=== PATIENT | female | born 1950 | race Caucasian/White ===

== ENCOUNTER 2018-02-14 16:02 | Emergency (ER) | payer MEDICARE, MEDICAID, SELFPAY ==
[2018-02-14] VITALS (23 sets, daily range): BP systolic 137–155; BP diastolic 58–101; PULSE 54–102; RESP 13–25; TEMP 36.2–37; O2SAT 94–98
--- NOTE | 2018-02-14 16:31 | DI.RPTCT_ITS ---
SYMPTOMS/DIAGNOSIS: MENTAL STATUS CHANGES, PREVIOUS STROKE WITH APHASIA AND LT WEAKNESS NONCONTRAST HEAD CT: A large amount of artifact is again noted related to aneurysm clipping. A right temporal craniotomy and a large area of encephalomalacia involving nearly the entire right hemisphere is again noted. There is ex vacuo dilatation of the right lateral ventricle. No acute hemorrhage or acute infarct is seen. There has been no change from previous exams. IMPRESSION: Large area of right sided encephalomalacia, unchanged.
--- NOTE | 2018-02-14 16:33 | DI.RPTCT_ITS ---
SYMPTOM/DIAGNOSIS: MENTAL STATUS CHANGES, QUESTION FEVER, RLQ TENDERNESS CT CHEST, ABDOMEN AND PELVIS: Images were performed from the clavicles through the ischial tuberosities without IV or oral contrast. The exam is somewhat limited by patient motion and patient arm positioning over her abdomen. The heart size is normal. Vascular calcifications are seen. Emphysematous changes are noted. No infiltrate or effusion is seen. No mass or adenopathy is identified. No compression fractures are identified. There is motion at the level of the liver and spleen. No gross abnormalities identified. The gallbladder is not seen, status post cholecystectomy. The pancreas is not well seen due to motion. There is no evidence of hydronephrosis or obstructing stones. Diverticula are noted in the sigmoid colon. There is no evidence of diverticulitis. The patient is status post hysterectomy. There is a cystic area seen in the left side of the pelvis measuring 4.4 x 6.3 x 4.8 cm likely representing a left ovarian cyst. There is mild pelvic floor prolapse. IMPRESSION: 6.3 cm left ovarian cyst. An ultrasound could be performed for further evaluation. No acute abnormality is identified.
--- NOTE | 2018-02-14 16:33 | ED.GENADUL ---
Disposition Clinical Impression: Mental status change resolved Disposition: LEVEL III [facility] Condition: Good Additional Instructions: You underwent laboratory testing including CBC, comprehensive panel, urinalysis: White blood cell count 10, hematocrit 42, platelets 387. Sodium 142, potassium 4.3, chloride 105, bicarb 29, BUN 10, creatinine 0.8. LFTs were negative. Troponin negative. Catheterized urinalysis unremarkable You underwent CT scan of the head, chest, abdomen and pelvis. There is no evidence of acute finding. You do have a possible ovarian cyst on the left. Your workup has been reassuring. vital signs have remained normal without fever. You are stable for discharge back to the [facility]. Medical Decision Making - Lab Data Laboratory Results - last 24 hr 02/14/18 02/14/18 02/14/18 11:58 16:46 16:46 WBC 10.76 RBC 4.97 Hgb 14.2 Hct 42.7 MCV 85.9 MCH 28.6 MCHC 33.3 RDW 13.5 Plt Count 387 MPV 9.7 Immature Gran % 0.3 Neutrophils % 60.6 Lymphocytes % 29.3 Monocytes % 7.8 Eosinophils % 1.4 Basophils % 0.6 Absolute Neutrophils 6.53 Absolute Lymphocytes 3.15 Absolute Monocytes 0.84 H Absolute Eosinophils 0.15 Absolute Basophils 0.06 Sodium 142 Potassium 4.3 Chloride 105 Carbon Dioxide 29.8 Anion Gap 7.2 BUN 10 Creatinine 0.83 Estimated GFR/1.73 m2 >= 60.00 Glucose 95 Calcium 9.1 Magnesium 2.2 Total Bilirubin 0.2 AST 15 ALT 17 Alkaline Phosphatase 84 Troponin I < 0.02 Total Protein 8.0 Albumin 3.2 L Urine Color Straw Urine Clarity Clear Urine pH 6.0 Ur Specific [place] <= 1.005 Urine Protein Negative Urine Ketones Negative Urine Blood Small H Urine Nitrite Negative Urine Bilirubin Negative Urine Urobilinogen 0.2 Ur Leukocyte Esterase Negative Urine RBC 0-2 Urine WBC 0-2 Ur Epithelial Cells Negative Urine Crystals Negative Urine Bacteria Negative Urine Casts Negative Urine Mucus Negative Urine Other Negative Ur Culture Indicated? 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 She presents with question fever at senior living and question mental status changes. She arrives afebrile, she is interactive, she answers simple questions yes or no. Her exam does reveal some right lower quadrant abdominal tenderness. Do not feel history of its peritonitis, but she is difficult to interview given her pre-standing aphasia. IV placed, labs obtained, patient referred for cath urine, CT scan of the head as well as chest abdomen and pelvis. Diagnostics reveal: CBC with white count 10, hematocrit 42, platelets 387. Sodium 142, potassium 4.3, chloride 105, bicarb 29, BUN 10, creatinine 0.8 LFTs unremarkable. Troponin negative. Urinalysis unremarkable . CT scan results are negative for acute findings of the brain, the chest abdomen and pelvis are notable only for pelvic floor laxity and possible ovarian cyst.. Patient has remained. When I went to discuss her findings that were negative with her she began to repeatedly state money God damn money endpoint to numerous illustrations in her spiral notebooks of similar sets of numbers that she keeps reciting. Unclear why she is agitated regarding money. She received a small amount of Ativan History of Present Illness - General Chief complaint: AMS/LOC Stated complaint: CALEX Time Seen by Provider: 02/14/18 16:19 Source: patient, EMS, RN notes reviewed Mode of arrival: EMS Limitations: other (Pre-standing aphasia due to stroke) - History of Present Illness Initial comments: 67-year-old female who lives at the [facility]. She has freestanding aphasia and left-sided weakness from previous CVA. She was noted to be burning up per nursing referral and had question of new mental status changes. There is no note of fall, new focal weakness, patient refused other interventions and was transported to the emergency department. History is limited by patient's pre-standing a aphasia - Related Data Unknown [No Known Home Meds] 02/14/18 Allergies Allergy/AdvReac Type Severity Reaction Status Date / Time aspirin Allergy Unknown Unverified 02/14/18 16:18 Penicillins Allergy Unknown Unverified 02/14/18 16:18 Sulfa (Sulfonamide Allergy Unknown Unverified 02/14/18 16:18 Antibiotics) Review of Systems Limitations: ROS unobtainable due to patients medical condition Past Medical History - Past Medical History See nursing notes. General Exam - General Limitations: language barrier, other (Pre-standing aphasia) General appearance: alert, in no apparent distress - Head Head exam: Present: atraumatic, normocephalic - Eye Eye exam: Present: PERRL, EOMI - Neck Neck exam: Present: normal inspection, full ROM - Respiratory Respiratory exam: Present: normal lung sounds bilaterally. Absent: respiratory distress, chest wall tenderness - Cardiovascular Cardiovascular Exam: Present: regular rate, normal rhythm - GI/Abdominal GI/Abdominal exam: Present: soft, tenderness, other (Right lower quadrant tenderness to palpation.). Absent: distended - Neurological Exam Neurological exam: Present: alert, other (Left upper and lower extremity hemiplegia, expressive aphasia) - Skin Skin exam: Present: warm, dry, intact Course Vital Signs - 24 hr 02/14/18 16:13 Temperature 37 C Pulse 60 Respiratory 16 Rate Blood Pressure 155/68 Pulse Oximetry 95
[2018-02-14 16:56] LABS: Abs Immature Grans 0.03 k/cumm (0.0-0.09); Absolute Basophil Count 0.06 k/cumm (0.0-0.2); Absolute Eosinophil Count 0.15 k/cumm (0.0-0.7); Absolute Lymphocyte Count 3.15 k/cumm (1.2-3.4); Absolute Monocyte Count 0.84 k/cumm (0.11-0.7); Absolute Neutrophil Count 6.53 k/cumm (1.2-6.7); Basophils % 0.6; Eosinophils % 1.4; HCT 42.7 % (36.0-46.0); HGB 14.2 g/dL (12.0-15.5); Immature Grans % 0.3; Lymphocytes % 29.3; Mean Corp. HGB Concentration 33.3 g/dL (32.0-36.0); Mean Corpuscular Hemoglobin 28.6 pg (27.0-33.0); Mean Corpuscular Volume 85.9 fL (80-95); Mean Platelet Volume 9.7 fL (8.0-11.0); Monocytes % 7.8; Neutrophils % 60.6; Platelet Count 387 x1000/uL (130-400); RBC 4.97 m/cumm (4.00-5.20); RBC Distribution Width 13.5 % (11.7-14.6); White Blood Cell Count 10.76 k/cumm (4.4-10.8)
[2018-02-14 17:15] LABS: Bilirubin Negative (Negative); Blood Small (Negative); Clarity Clear; Glucose Negative (Negative); Ketones Negative (Negative); Leukocyte Esterase Negative (Negative); Nitrite Negative (Negative); Specific Gravity <= 1.005 (1.005-1.025); Urobilinogen 0.2 EU/dL (Up TO 0.2)
[2018-02-14 17:18] LABS: ALT 17 U/L (12-78); AST 15 U/L (15-37); Albumin 3.2 g/dL (3.4-5.0); Alkaline Phosphatase 84 U/L (46-116); Anion Gap 7.2 mmol/L (3-11); BUN 10 mg/dL (7-18); Bilirubin, Total 0.2 mg/dL (0.2-1.0); CO2 29.8 mmol/L (21.0-32.0); CREATININE 0.83 mg/dL (0.55-1.02); Calcium 9.1 mg/dL (8.5-10.1); Chloride 105 mmol/L (98-107); Glucose 95 mg/dL (70-100); Magnesium 2.2 mg/dL (1.8-2.4); Potassium 4.3 mmol/L (3.5-5.1); Sodium 142 mmol/L (136-145)
[2018-02-14] MEDS: Normal Saline 1,000 ML 150 ML IV (17:20)
[2018-02-14 17:22] LABS: Troponin I < 0.02 ng/mL (0.00-0.06)
[2018-02-14 17:28] LABS: Bacteria Negative HPF (Negative); Casts Negative LPF (Negative); Crystals Negative HPF (Negative); Epithelial Cells Negative HPF (Negative); Mucus Negative (Negative); Other Cells Negative (Negative); RBC 0-2 (0-2); WBC 0-2 HPF (0-5)
[2018-02-14 17:29] LABS: C & S Indicated? No
[2018-02-14] MEDS: Omnipaque 350 MG/ML 100 ML BTL IJ (17:32)
--- NOTE | 2018-02-14 18:05 | DI.VRAD_ITS ---
EXAM: CT Head Without Intravenous Contrast CLINICAL HISTORY: 67 years old, female; Signs and symptoms; Altered mental status/memory loss; Other: Previous stroke TECHNIQUE: Axial computed tomography images of the head/brain without intravenous contrast. All CT scans at this facility use at least one of these dose optimization techniques: automated exposure control; mA and/or kV adjustment per patient size (includes targeted exams where dose is matched to clinical indication); or iterative reconstruction. Coronal and sagittal reformatted images were created and reviewed. COMPARISON: No relevant prior studies available. FINDINGS: Brain: See below. Ventricles: There is mild, diffuse involutional change with mild associated ventriculomegaly. 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 There is encephalomalacia involving nearly the entire right MCA distribution, consistent with associated infarction. There is significant compensatory dilatation of the right lateral ventricle. No acute fracture. Soft tissues: Unremarkable. Sinuses: Unremarkable as visualized. No acute sinusitis. Mastoid air cells: Unremarkable as visualized. No mastoid effusion. 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 There is encephalomalacia involving nearly the entire right MCA distribution, consistent with associated infarction. There is significant compensatory dilatation of the right lateral ventricle. No acute brain abnormality is seen. Dictated and Authenticated by: Nabor Ramirez MD. Ordering:JAMAICA EVANGELISTA MD
--- NOTE | 2018-02-14 19:19 | DI.VRAD_ITS ---
EXAM: CT Chest Without Intravenous Contrast CLINICAL HISTORY: 67 years old, female; Signs and symptoms; Other: ? Fever rt lower quadrant pain TECHNIQUE: Axial computed tomography images of the chest without intravenous contrast. All CT scans at this facility use at least one of these dose optimization techniques: automated exposure control; mA and/or kV adjustment per patient size (includes targeted exams where dose is matched to clinical indication); or iterative reconstruction. Coronal and sagittal reformatted images were created and reviewed. COMPARISON: No relevant prior studies available. FINDINGS: Artifacts: Respiratory motion slightly limits the exam. Lungs: COPD noted. Pleural space: Unremarkable. No pneumothorax. No significant effusion. Heart: Mild coronary artery calcifications noted. No significant pericardial effusion. Bones/joints: Unremarkable. No acute fracture. No dislocation. Soft tissues: Unremarkable. Vasculature: Moderate atherosclerotic change seen in the vasculature. No thoracic aortic aneurysm. Lymph nodes: Unremarkable. No enlarged lymph nodes. IMPRESSION: COPD. No evidence for acute abnormality. EXAM: CT Abdomen and Pelvis Without Intravenous Contrast EXAM DATE/TIME: 02/14/2018 5:46 PM CLINICAL HISTORY: 67 years old, female; Signs and symptoms; Other: ? Fever rt lower quadrant pain TECHNIQUE: Axial computed tomography images of the abdomen and pelvis without intravenous contrast. All CT scans at this facility use at least one of these dose optimization techniques: automated exposure control; mA and/or kV adjustment per patient size (includes targeted exams where dose is matched to clinical indication); or iterative reconstruction. Coronal and sagittal reformatted images were created and reviewed. COMPARISON: No relevant prior studies available. FINDINGS: Artifacts: Respiratory motion slightly limits the exam. Lung bases: Unremarkable. No mass. No consolidation. ABDOMEN: Liver: Unremarkable. Gallbladder and bile ducts: Gallstones. No ductal dilation. Pancreas: Unremarkable. No ductal dilation. Spleen: Unremarkable. No splenomegaly. Adrenals: Unremarkable. No mass. Kidneys and ureters: Dystrophic right renal cortical calcification noted, presumed scarring. No hydronephrosis. Stomach and bowel: Unremarkable. No obstruction. No mucosal thickening. PELVIS: Appendix: No findings to suggest acute appendicitis. Bladder: Unremarkable. No stones. Reproductive: There is a low density left adnexal lesion 4.4 x 6.3 x 4.8 cm. Status post hysterectomy. There is pelvic floor laxity with mild vaginal prolapse. ABDOMEN and PELVIS: Intraperitoneal space: Unremarkable. No free air. No significant fluid collection. Bones/joints: No acute fracture. No dislocation. Soft tissues: Unremarkable. Vasculature: Moderate atherosclerotic change seen in the vasculature. No abdominal aortic aneurysm. Lymph nodes: Unremarkable. No enlarged lymph nodes. IMPRESSION: 1. Left adnexal lesion, probable ovarian cyst. Followup sonography recommended. 2. Mild degree of vaginal prolapse and pelvic floor laxity. Preliminary interpretation is based on receipt of 380 image(s). A final report will be issued subsequently. We appreciate the opportunity to be involved in this patient's care. Dictated and Authenticated by: Rhiannon Pabon MD. Ordering:JAMAICA EVANGELISTA MD
[2018-02-14] MEDS: LORazepam 2 MG/ML VIAL 0.5 MG IVP (19:58)
== END 2018-02-14 20:19 | disposition designated cancer center or children's hospital (05) ==
LOC: ER 01-12 23:05
PROVIDERS: Emergency Provider Emergency Medicine; PCP Nurse Practitioner Adult Health
DX: R41.82 Altered mental status, unspecified (principal); R10.31 Right lower quadrant pain; I69.320 Aphasia following cerebral infarction
CPT/HCPCS: 36415; 71250; 80053; 96361; 96374; 99284; 70450; 74176; 81003; 81015; 83735; 84484; 85025; J2060; J3490

== ENCOUNTER 2019-03-14 15:22 | Emergency (ER) | payer MEDICARE, MEDICAID, SELFPAY ==
[2019-03-14 15:30] VITALS: BP 197/80; PULSE 92; RESP 16; TEMP 36.5; O2SAT 94
--- NOTE | 2019-03-14 15:46 | DI.CT_ITS ---
SYMPTOM/DIAGNOSIS: WOUND ON SKULL ON RT CRANIAL CT: 03/[address] was performed. Note is made of prior right craniotomy defect with large area of right hemisphere encephalomalacia and aneurysm clips in the right middle fossa/sella turcica region. Examination is compared to previous examination of 02/14/18. No change in appearance since that time. No evidence of acute intracranial hemorrhage, mass effect or midline shift. The orbital and temporal bone structures appear intact.. CONCLUSION: No evidence of acute process.
--- NOTE | 2019-03-14 15:47 | ED.GENADUL_ITS ---
Discharge Plan Disposition Patient Disposition: SNF (LEVEL 1) [facility] Discharge Details Chief Complaint: RashLesion Clinical Impression: Open scalp wound Primary Care Provider: Stephanie Morris ED Provider: Lazaro Franklin Home Meds and New Rx's Prescriptions: No Action No Known Home Meds RF: 0 Discharge Instructions Additional Instructions: Patient will be referred to the wound care clinic. Return to the emergency department immediately if she develops any fevers, weakness, or for any other concerning or worsening symptoms at all. Referrals: Stephanie Morris [Primary Care Provider] - Medical Decision Making This patient is a 68-year-old female who presents to the emergency department with chief complaint of wound on her head. Patient cannot provide much of the history. Patient did have a CT scan of her head which shows no acute changes. This wound is likely chronic in nature and would need to go to the wound care clinic to help get it to heal. There is no evidence of cellulitis around it. Patient will be referred to the wound care clinic. [id number] will be provided return precautions and discharge instructions. She agrees with outpatient treatment plan. HPI This patient is a 68-year-old female who was brought in by her [id number]. The patient lives at the [facility]. The patient has had a history of an aneurysm, brain surgery, and has difficulty with communication due to her history of stroke. She was brought in today because she has a wound on the top of her head on the right side. The wound has a dry crusted lesion in it. It has been present for about 2 months. The family states that it has gotten worse over the past month, slightly increasing in size. There is no surrounding drainage or warmth. Patient has not had any fevers. She has not really complained about it. She has not had any vomiting, diarrhea, fever, or any other recent illness. Patient cannot provide any history. The history comes from the [id number]. General Date/Time Provider Initiated Documentation: 03/14/19 15:46 . Related Data Home Medications Medication Instructions Recorded Confirmed Unknown [No Known Home Meds] 02/14/18 03/14/19 Allergies Allergy/AdvReac Type Severity Reaction Status Date / Time aspirin Allergy Unknown Unverified 03/14/19 15:36 Penicillins Allergy Unknown Unverified 03/14/19 15:36 Sulfa (Sulfonamide Allergy Unknown Unverified 03/14/19 15:36 Antibiotics) General Stated Complaint: RashLesion LARA: 3 Review of Systems Review of Systems Pmprukyh-[id number]-[id number] denies any vomiting, fever or other recent illness. [facility] Social History Smoking/Tobacco Use Status: Former Tobacco Use Drug use: Never Exam Narrative Exam Narrative: Gen: no acute distress, alert. Eyes: EOMs intact. Head: there is a 3 cm in diameter scalp wound on the right parietal area with eschar. no surrounding erythema or warmth. ENT: nose and ears normal. Neck: normal ROM. Lung: no respiratory distress. Neuro: aphasia, cannot move left side of body. Psych: normal affect. Skin: warm, intact. Course Vital Signs Temperature 36.5 C 03/14/19 15:30 Pulse 92 H 03/14/19 15:30 Respiratory Rate 16 03/14/19 15:30 Blood Pressure 197/80 H 03/14/19 15:30 Pulse Oximetry 94 L 03/14/19 15:30 Temperature 36.5 C 03/14/19 15:30 Temperature Source Skin 03/14/19 15:30 Pulse 92 H 03/14/19 15:30 Respiratory Rate 16 03/14/19 15:30 Respiratory Effort Non-Labored 03/14/19 15:30 Blood Pressure 197/80 H 03/14/19 15:30 Blood Pressure Position Supine 03/14/19 15:30 Pulse Oximetry 94 L 03/14/19 15:30 Oxygen Delivery Method Room Air 03/14/19 15:30 Oxygen Flow Rate 0 03/14/19 15:30 Pain Level 9 03/14/19 15:30
--- NOTE | 2019-03-14 16:28 | DI.VRAD_ITS ---
EXAM: CT Head Without Contrast EXAM DATE/TIME: 03/14/2019 3:48 PM CLINICAL HISTORY: 68 years old, female; Condition or disease; Aneurysm, cerebral; Prior surgery; Surgery date: 6+ months; Surgery type: History of aneurysm and skull removal. TECHNIQUE: Imaging protocol: Computed tomography of the head without contrast. COMPARISON: CT HEAD WITHOUT CONTRAST 02/14/2018 5:33 PM FINDINGS: Prior right temporal and parietal craniotomies unchanged. Prior right aneurysm clipping. Extensive encephalomalacia in the right hemisphere unchanged. No new area of acute ischemia. No evidence of acute hemorrhage. IMPRESSION: Marked chronic changes in the right hemisphere as described stable from the prior examination with no definite evidence of acute intracranial process. Dictated and Authenticated by: Mehul Mackay MD. Ordering:DARLNIG Willis MD
[2019-03-14 16:50] VITALS: BP 162/66; PULSE 75; RESP 16; TEMP 36.5; O2SAT 93
== END 2019-03-14 16:45 | disposition skilled nursing facility (03) ==
PROVIDERS: Emergency Provider Emergency Medicine; PCP Nurse Practitioner Adult Health
DX: S01.00XA Unspecified open wound of scalp, initial encounter (principal); X58.XXXA Exposure to other specified factors, initial encounter
CPT/HCPCS: 99284; 70450; 99283

== ENCOUNTER 2019-03-18 12:22 | Outpatient (REF) | payer MEDICARE, MEDICAID, SELFPAY ==
--- NOTE | 2019-03-18 18:00 | SKI_PTH ---
PATIENT: Belinda Wallace LOC: [facility] U#:[id number] AGE/SX: 68/F ROOM: RE03/18/[address]: Jane Sigala MD, DC : 1950 BED: DIS: 03/18/2019 SPEC #: [id number] RECD: 03/19/19 12:46 STATUS: VELVET REQ #: [id number] ALEJANDRO: 03/18/19 18:[address]: Jane Sigala DEPT: Surgical Specimen RECD BY: Salima Ronquillo Tissues: 1 - SKIN BIOPSY(SHAVE/PUNCH) Procedures: GROSS LEVEL 1 Comments: [id number]
== END 2019-03-18 12:42 ==
LOC: LBN 12:22
PROVIDERS: PCP Family Medicine; Visit Provider Family Medicine
DX: D48.5 Neoplasm of uncertain behavior of skin (principal)
CPT/HCPCS: 88300; 87070; 88305; 88311

== ENCOUNTER 2020-03-20 20:50 | Emergency (ER) | payer MEDICARE, MEDICAID, SELFPAY ==
[2020-03-20 20:54] VITALS: BP 162/58; PULSE 61; TEMP 36.5; O2SAT 97
--- NOTE | 2020-03-20 21:10 | W.ED.GENAD ---
Discharge Plan Disposition Patient Disposition: HOME Condition: Stable Discharge Details Clinical Impression: Skull defect, History of cranial surgery Primary Care Provider: Liz Bertrand ED Provider: Felicia Smith Home Meds and New Rx's Prescriptions: Continued acetaminophen 650 mg Tablet 650 mg PO Q6H PRNRF: 0 nystatin 100,000 unit/gram Powder 1 applic TOPICAL BID PRNRF: 0 ondansetron 4 mg Tablet,Disintegrating 4 mg translingual Q8H PRNRF: 0 Discharge Instructions Instructions: Computed Tomography Scan (ED) Additional Instructions: Drink plenty of fluids and get plenty of rest. Follow-up with your primary care doctor in 1 week. Return to the emergency department with any worsening or new concerning symptoms. 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 Pt at neurologic baseline per family and [facility] staff. BP hypertensive, remainder of vitals within normal limits. She has a chronic appearing R sided skull defect which appears well healed w/o evidence of cellulitis, trauma or rash. Case d/w pt's daughter in law Reny - she is agreeable with plan for CT head but I informed her that I do not see any evidence of concerning mass, infection. Discussed that other possibilities can include dehydration making skull appears more prominent or minimal inflammatory reaction. CT head obtained which is negative for acute findings. Results d/w Reny. Will plan for discharge back to the [facility]. Advised to follow up with the primary care doctor for re-evaluation. Usual and customary return precautions given prior to discharge. Medical Records Medical records reviewed: Yes I reviewed the patient's medical records. Imaging Data Radiologic Study: Radiologist's impression: CT Head Without Contrast Exam date and time: 03/20/2020 9:24 PM Age: 69 years old Clinical indication: Prior surgery; Patient HX: Possible lump on R side of head; Additional info: R/O acute intracranial abnormality TECHNIQUE: Imaging protocol: Computed tomography of the head without contrast. COMPARISON: 1. CT HEAD WO 03/14/2019 4:[address] - HEAD WITHOUT CONTRAST 02/14/2018 5:33:08 PM FINDINGS: Brain: Large area of encephalomalacia in the right hemisphere, unchanged. No acute hemorrhage. Right sided aneurysm clip is unchanged. Ventricles: Compensatory right lateral ventricle dilation is unchanged. Bones/joints: Postsurgical changes in the right calvarium. Paranasal sinuses: Visualized sinuses are unremarkable. No fluid levels. Mastoid air cells: Visualized mastoid air cells are well aerated. Soft tissues: Unremarkable. IMPRESSION: 1. No acute intracranial abnormality. 2. No significant change from the prior exam. HPI General Mode of arrival: EMS. Date/Time Provider Initiated Documentation: 03/20/20 21:01. Limitations to Documentation: other (chronic aphasia due to previous cva). Information obtained by: EMS. HPI Narrative: Pt is a 69yo F w/ a h/o cerebral aneurysm resulting in cva 2005 s/p coiling with residual asphasia and LUE/LLE hemiplegia presents from the [facility] at family request for concern of a tumor growing out of her head. Pt has had chronic skull defect due to previous craniotomy and coiling but daughter in law Reny states that she thought that the R side of patient's head appeared swollen and more prominent compared to previous. She states she last saw pt 6 weeks ago and this appears more prominent compared to previous. She states pt is otherwise acting at her neurologic baseline. Denies any recent illness or injury. History unable to be obtained from pt due to her aphasia. Reny states that pt understands what is being said but cannot express herself appropriately. Related Data Home Medications Medication Instructions Recorded Confirmed acetaminophen 650 mg PO Q6H PRN 03/20/20 03/20/20 nystatin 1 applic TOPICAL BID PRN 03/20/20 03/20/20 ondansetron 4 mg TRANSLINGUAL Q8H PRN 03/20/20 03/20/20 Allergies Allergy/AdvReac Type Severity Reaction Status Date / Time aspirin Allergy Unknown Unverified 03/14/19 15:36 Penicillins Allergy Unknown Unverified 03/14/19 15:36 Sulfa (Sulfonamide Allergy Unknown Unverified 03/14/19 15:36 Antibiotics) General Stated Complaint: GenMedical LARA: 3 Review of Systems Unobtainable due to mental status [facility] Medical History (Updated 03/21/20 @ 13:51 by Felicia Smith DO) Cerebral aneurysm CVA (cerebral vascular accident) Skull defect Surgical History (Updated 03/21/20 @ 13:51 by eFlicia Smith DO) History of cranial surgery S/P coil embolization of cerebral aneurysm Social History Smoking/Tobacco Use Status: Former Tobacco Use Drug use: Never Additional Social history: pt lives at the [facility] Exam Const General: cooperative and no acute distress Orientation: alert and awake [facility] Head: other Head images: 1. Multiple bony abnormalities noted to R side of skull consistent with previous bony abnormality from skull surgeries. Face and sinus: normal facial exam Eyes General: appearance normal, both eyes and all related structures Pupils: PERRL EOM: EOM intact bilaterally Neck Neck: normal visual inspection and No submandibular swelling Lymphatic: no lymphadenopathy noted Chest Chest: normal inspection of the chest and no tenderness Resp Effort & Inspection: normal respiratory effort and able to speak in complete sentences Auscultation: clear to auscultation bilaterally Cardio Rate: regular rate Rhythm: regular rhythm GI Inspection: normal to inspection Palpation: soft, not firm, not rigid and nontender Auscultation: normal bowel sounds Back/Spine/Pelvis Thoracic/Lumbar Spine: thoracic and lumbar spine normal to inspection Pelvis: no pain with anterior-posterior compression Skin General skin exam: no rashes or lesions noted Neuro General: patient alert and patient awake Speech: expressive aphasia Other: LUE and LLE paralysis. Able to move and lift RUE/RLE. Extrem General: capillary refill normal, no calf tenderness bilaterally and no edema Other: L hand contracted and held close to body. Psych Appearance: grossly normal Affect: normal affect Course Vital Signs Vital signs: Vital Signs Temperature 97.7 F 03/20/20 20:54 Pulse 61 03/20/20 20:54 Blood Pressure 162/58 H 03/20/20 20:54 Pulse Oximetry 97 03/20/20 20:54 Temperature 97.7 F 03/20/20 20:54 Temperature Source Skin 03/20/20 20:54 Pulse 61 03/20/20 20:54 Blood Pressure 162/58 H 03/20/20 20:54 Blood Pressure Position Sitting 03/20/20 20:54 Pulse Oximetry 97 03/20/20 20:54 Oxygen Delivery Method Room Air 03/20/20 20:54 Oxygen Flow Rate 0 03/20/20 20:54
--- NOTE | 2020-03-20 21:15 | DI.CT_ITS ---
EXAM: CT HEAD WO CLINICAL HISTORY: possible lump on R side of head TECHNIQUE: COMPARISON: CT CT HEAD WO from 03/14/2019 FINDINGS: Noncontrast cranial CT was performed. Examination is compared with prior study of March 2019, no te is again made of prior right craniotomy with extensive right encephalomalacia and multiple surgica l clips in the right middle temporal fossa. Findings appear unchanged from the prior study. No evid ence of acute intracranial hemorrhage or change in appearance of the ventricles. IMPRESSION: Stable postsurgical findings. No acute hemorrhage. RADIATION DOSE DELIVERED: 696.9mGy.cm Total DLP
[2020-03-20 21:16] VITALS: RESP 16
[2020-03-20 21:53] VITALS: BP 165/80; PULSE 66; RESP 16; TEMP 36.3; O2SAT 98
--- NOTE | 2020-03-20 22:04 | DI.VRAD_ITS ---
PROCEDURE INFORMATION: Exam: CT Head Without Contrast Exam date and time: 03/20/2020 9:24 PM Age: 69 years old Clinical indication: Prior surgery; Patient HX: Possible lump on R side of head; Additional info: R/O acute intracranial abnormality TECHNIQUE: Imaging protocol: Computed tomography of the head without contrast. COMPARISON: 1. CT HEAD WO 03/14/2019 4:[address] - HEAD WITHOUT CONTRAST 02/14/2018 5:33:08 PM FINDINGS: Brain: Large area of encephalomalacia in the right hemisphere, unchanged. No acute hemorrhage. Right sided aneurysm clip is unchanged. Ventricles: Compensatory right lateral ventricle dilation is unchanged. Bones/joints: Postsurgical changes in the right calvarium. Paranasal sinuses: Visualized sinuses are unremarkable. No fluid levels. Mastoid air cells: Visualized mastoid air cells are well aerated. Soft tissues: Unremarkable. IMPRESSION: 1. No acute intracranial abnormality. 2. No significant change from the prior exam. Dictated and Authenticated by: Chadd Orozco MD. Ordering:VALARIE Duarte MD
== END 2020-03-20 22:50 | disposition home or self-care (01) ==
PROVIDERS: Emergency Provider Physician Assistant; PCP Family Medicine
DX: M89.78 Major osseous defect, other site (principal); Z98.890 Other specified postprocedural states; I67.1 Cerebral aneurysm, nonruptured; I69.320 Aphasia following cerebral infarction
CPT/HCPCS: 99284; 70450

== ENCOUNTER 2020-08-07 09:59 | Observation (INO) | payer MEDICARE, MEDICAID, SELFPAY ==
[2020-08-07] VITALS (41 sets, daily range): BP systolic 115–158; BP diastolic 42–80; PULSE 42–89; RESP 9–26; TEMP 36.3–36.8; O2SAT 88–99
--- NOTE | 2020-08-07 09:45 | RT.EKG_ITS ---
APPROVED REPORT Exam: Resting ECG Patient Location: E HR:75 bpm ECG Measurements Heart Rate 75 AXIS IL 133 P 51 QRSd 77 QRS 39 QT 380 T 43 QTc 424 Conclusion Sinus rhythm...normal P axis, V-rate 60- 99 sinus rhythm at 75, normal axis, no STEMI, nondiagnostic EKG
--- NOTE | 2020-08-07 09:54 | W.ED.GENAD ---
Discharge Plan Disposition Condition: Stable Discharge Details Chief Complaint: Chest Pain Admit Date/Time: 08/07/20 12:34 Admit Provider: Giovany Richmond Attending Provider: Giovany Richmond Primary Care Provider: Liz Bertrand ED Provider: Rosa Maria Mackay Discharge Instructions Activity:: Activity as Tolerated Equipment/Supplies:: No Equipment Needed Diet:: As Tolerated Discharge Orders Discharge Orders: Discharge Order (Routine); Ordered 08/08/20 Ordered By: Mely Lopez Discharge Data Discharge Date/Time-TO BE ENTERED AT DEPARTURE: 08/07/20 13:51 Medical Decision Making Belinda Wallace is a 70-year-old woman with a history of CVA in the past with residual deficit, status post cerebral aneurysm coiling who presented to the emergency department with complaint of chest pain followed by apparently resolution of chest pain and complaint of headache after having a bowel movement this morning. No trauma. On exam patient is apparently at her neurologic baseline, however she does appear uncomfortable and is holding the right side of her forehead. No hematoma or changes to her forehead/scalp. Concern for possible intracranial bleed versus other headache versus other, concern for ACS, PE, other etiology of chest pain. Determine duration of differential difficult secondary to limited history from patient. Exam/history at this time is not consistent with meningitis, acute aortic pathology. Plan for CT head, EKG, chest x-ray, screening labs, telemetry, morphine. Given that pain started within 6-hour window, plan for CTA head and neck. Prior to patient going to CT, patient became agitated, seeming to become more uncomfortable with her hand on her right forehead. Patient became bradycardic with heart rate in the 30s. There was no change in her blood pressure and patient remained alert. Pacer pads were placed. Patient appears to be in sinus bradycardia on rhythm strip. Bradycardia improved with heart rate in 60s and 70s after several minutes. Dilaudid given for pain. Patient appeared more comfortable after pain medication administered. Patient was taken to CT head, CT head, CTA brain/neck performed without further issue. CT head and CTA brain/neck negative per radiology. Labs reviewed, nondiagnostic. CTA was negative and was performed within 6 hours of symptom onset extremely low risk for subarachnoid hemorrhage at this time. Patient continues to appear comfortable. Patient was seen by respiratory therapist who knows patient from [facility] where she worked with her for 4 years, and states that patient did complain routinely of chest pain and headache and that her uncomfortable appearance and complaints are typical for her. Unclear etiology of chest pain, headache at this time. Bradycardia possibly secondary to vagal episode, however this is unclear. Plan for admission for further evaluation and work-up. Clinical impression: Headache, chest pain Disposition: [facility] inpatient Medical Records Medical records reviewed: Yes I reviewed the patient's medical records. Imaging Data Radiologic Study: Attestation: I personally reviewed and interpreted this imaging study as follows: Radiologist's impression: EXAM: CT HEAD WO CLINICAL HISTORY: headache. TECHNIQUE: Imaging Protocol: Axial computed tomography images with coronal and sagittal reformatted images were created and reviewed COMPARISON: CT CT HEAD WO from 03/20/2020 FINDINGS: There are stable postsurgical changes present. Stable large area of encephalomalacia involving the right cerebral hemisphere is noted. Ventricular size is stable. There is no acute midline shift or mass effect. No acute intracranial hemorrhage. Visualized paranasal sinuses are clear as are the mastoid air cells. No acute calvarial fracture. IMPRESSION: No acute intracranial process. EXAM: CT BRAIN NECK CTA CLINICAL HISTORY: headache. TECHNIQUE: Imaging Protocol: Axial CT angiography was performed with multi-slice acquisition and multi-planar and/or 3D reconstructions. CONTRAST MATERIAL: Intravenous: Omnipaque 350 Contrast volume:85 mL COMPARISON: CT CT HEAD WO from 03/20/2020 FINDINGS: CTA Brain W: Internal Carotid Arteries: Petrous: There is marked attenuation of the right internal carotid artery from its petrous portion to the supraclinoid portion. The left internal carotid artery is unremarkable. Cavernous: Please see above. Cerebral: Please see above. Middle Cerebral Arteries: Right: There is marked attenuation of the right middle cerebral artery branches. Multiple surgical clips are seen in the right middle cranial fossa obscuring portions of the middle cerebral artery. Left: No aneurysm, occlusion or significant stenosis. Anterior Cerebral Arteries: Right: There is marked attenuation of the right anterior cerebral artery. Left: No aneurysm, occlusion or significant stenosis. Posterior cerebral Arteries: Right: No aneurysm, occlusion or significant stenosis. Left: No aneurysm, occlusion or significant stenosis. Vertebral Arteries: Right: No aneurysm, occlusion or significant stenosis. Left: No aneurysm, occlusion or significant stenosis. Basilar Artery: No aneurysm, occlusion or significant stenosis. CTA Neck W: Common Carotid: Right: No aneurysm, occlusion or significant stenosis. Left: No aneurysm, occlusion or significant stenosis. External Carotid: Right: No aneurysm, occlusion or significant stenosis. Left: No aneurysm, occlusion or significant stenosis. Internal Carotid: Right: There is occlusion of the right internal carotid artery at its origin. Left: No aneurysm, occlusion or significant stenosis. Vertebral Artery: Right: No aneurysm, occlusion or significant stenosis. Left: No aneurysm, occlusion or significant stenosis. [address] head: No enhancing lesions are seen. Lung Apices: Normal. Bones: Degenerative changes are seen in the spine. Soft Tissues: Normal. IMPRESSION: 1. Occlusion of the right internal carotid artery at its are origin. Marked attenuation of the right anterior and middle cerebral arteries and distal right internal carotid artery. 2. No enhancing intracranial lesions seen on the [address] brain. 3. Findings were discussed with the emergency department on the date of the examination. Lab Data Lab results reviewed: Yes I reviewed the patient's lab results. ECG Data Attestation: I personally reviewed and interpreted this ECG (s) as follows: Interpretation: EKG shows sinus rhythm at 75, normal axis, no STEMI, nondiagnostic EKG Repeat EKG shows sinus rhythm at 77, normal axis, no STEMI, nondiagnostic EKG HPI General Mode of arrival: EMS. Date/Time Provider Initiated Documentation: 08/07/20 10:05. Limitations to Documentation: physical limitation. Information obtained by: patient, RN/MD, EMS, RN notes reviewed and old records reviewed. HPI Narrative: Belinda Valdovinos is a 70-year-old woman with a history of CVA in the past with residual speech deficit and left-sided hemiparesis, status post coil embolization of cerebral aneurysm presenting to emergency department complaining of chest pain and headache. Patient resides at the [facility]. I spoke with nurse plan through the phone, who reported that patient had a bowel movement this morning, began to complain of chest pain after the bowel movement, and then began to complain of headache. Nursing stated that these complaints are atypical for the patient, and thus they sent her to the emergency department. They report that chest pain seemed to resolve prior to EMS arrival with patient complaining only of headache. She reports that patient is at baseline neurologically with left-sided hemiparesis, minimal movement of the right leg, able to move the right arm, says only the words yes, no, Belinda, God damn it. Nursing reports that patient was without symptoms prior to episode this morning. Related Data Home Medications Medication Instructions Recorded Confirmed acetaminophen 650 mg PO Q6H PRN 03/20/20 08/07/20 nystatin 1 applic TOPICAL BID PRN 03/20/20 08/07/20 ondansetron 4 mg TRANSLINGUAL Q8H PRN 03/20/20 08/07/20 Allergies Allergy/AdvReac Type Severity Reaction Status Date / Time aspirin Allergy Unknown Unverified 03/14/19 15:36 Penicillins Allergy Unknown Unverified 03/14/19 15:36 Sulfa (Sulfonamide Allergy Unknown Unverified 03/14/19 15:36 Antibiotics) General LARA: 3 Review of Systems Narrative: Patient said yes when asked if she has a headache, no when asked she has chest pain, any other pain. Review of systems otherwise limited secondary to baseline neurologic deficit secondary to CVA in the past, does not respond to other review systems questions. Eyes: denies eye pain ENT: denies ear pain, sore throat Cardiovascular: denies chest pain GI: denies abdominal pain : denies flank pain MSK: denies back pain, neck pain Neuro: denies headaches [facility] Medical History (Updated 08/07/20 @ 16:49 by Mely Lopez NP) Cerebral aneurysm CVA (cerebral vascular accident) Skull defect Surgical History (Updated 04/20/20 @ 00:02 by LUIS GONZALEZ) History of cranial surgery S/P coil embolization of cerebral aneurysm Social History Smoking/Tobacco Use Status: Former Tobacco Use Smoking risk assessment performed?: Yes Drug use: Never Additional Social history: pt lives at the [facility] Narrative Exam Narrative: Constitutional: Chronically ill but acutely [id number] HENT: head atraumatic/normocephalic, mucous membranes moist Eyes: conjunctiva normal, sclera normal, pupils 3mm b/l Neck: no stridor, normal ROM, trachea midline Chest: normal inspection Resp: normal work of breathing, LCTAB Cardio: normal rate, normal rhythm, no murmur appreciated GI: abdomen soft, non-tender, non-distended Back: normal inspection, no rash Skin: warm, dry, normal color, no rash Neuro: alert, left hemiparesis, moves right leg but does not lift up against gravity, normal motor exam right arm, says the word yes, no, Belinda, God damn it, and no other words which is her baseline per nurse at the [facility]
[2020-08-07] MEDS: Ondansetron 4 MG/2 ML VIAL IVP ×2 (10:25→12:32)
[2020-08-07 10:32] LABS: Abs Immature Grans 0.02 10^3/uL (0.0-0.06); Absolute Basophil Count 0.08 10^3/uL (0.0-0.2); Absolute Eosinophil Count 0.15 10^3/uL (0.0-0.7); Absolute Lymphocyte Count 2.17 10^3/uL (1.2-3.4); Absolute Neutrophil Count 5.81 10^3/uL (1.2-6.7); Basophils % 0.9; Eosinophils % 1.7; HGB 12.9 g/dL (11.2-15.7); Immature Grans % 0.2; Lymphocytes % 24.6; MCH 27.6 pg (27.0-33.0); MCHC 31.5 % (32.0-36.0); MCV 87.6 fL (80-95); MPV 9.8 fL (8.0-11.0); Monocytes % 6.8; Neutrophils % 65.8; Nucleated RBC 0 %; Platelet Count 403 10^3/uL (130-400); RBC 4.68 10^6/uL (3.93-5.22); RDW 13.1 % (11.7-14.6); WBC 8.83 10^3/uL (4.4-10.8)
[2020-08-07 10:53] LABS: ALT 17 U/L (14-59); AST 14 U/L (15-37); Albumin 3.2 g/dL (3.4-5.0); Alkaline Phosphatase 76 U/L (46-116); Anion Gap 7.6 mmol/L (3-11); BUN 17 mg/dL (7-18); Bilirubin, Total 0.4 mg/dL (0.2-1.0); CO2 28.4 mmol/L (21.0-32.0); CREATININE 0.9 mg/dL (0.55-1.02); Calcium 9.2 mg/dL (8.5-10.1); Chloride 107 mmol/L (98-107); Glucose 92 mg/dL (74-106); Potassium 3.9 mmol/L (3.5-5.1); Sodium 143 mmol/L (136-145); Total Protein 7.9 g/dL (6.4-8.2)
[2020-08-07 10:54] LABS: Troponin I < 0.05 ng/mL (<0.06)
--- NOTE | 2020-08-07 11:00 | RT.EKG_ITS ---
APPROVED REPORT Exam: Resting ECG Patient Location: E HR:77 bpm ECG Measurements Heart Rate 77 AXIS FL 164 P 56 QRSd 89 QRS 21 QT 379 T 20 QTc 429 Conclusion Sinus rhythm...normal P axis, V-rate 60- 99 Anterior infarct, age indeterminate...Q >35mS, T neg, in V2-V5 sinus rhythm at 77, normal axis, no STEMI, nondiagnostic EKG
--- NOTE | 2020-08-07 11:15 | DI.CT_ITS ---
EXAM: CT HEAD WO CLINICAL HISTORY: headache. TECHNIQUE: Imaging Protocol: Axial computed tomography images with coronal and sagittal reformatted images were created and reviewed COMPARISON: CT CT HEAD WO from 03/20/2020 FINDINGS: There are stable postsurgical changes present. Stable large area of encephalomalacia involving the r ight cerebral hemisphere is noted. Ventricular size is stable. There is no acute midline shift or m ass effect. No acute intracranial hemorrhage. Visualized paranasal sinuses are clear as are the mas toid air cells. No acute calvarial fracture. IMPRESSION: No acute intracranial process. RADIATION DOSE DELIVERED: 758.46mGy.cm Total DLP DATA REPOSITORY: All CT scans at this facility are submitted to the National Radiology Data Registry (NRDR) Dose Index Registry (DIR) with the [employer] (ACR). RADIATION OPTIMIZATION: All CT scans at this facility use at least one of these dose optimization te chniques: automated exposure control; mA and/or kV adjustment per patient size (includes targeted exa ms where dose is matched to clinical indication); or iterative reconstruction.
[2020-08-07] MEDS: HYDROmorphone 2 MG/ML VIAL (11:28)
--- NOTE | 2020-08-07 11:30 | DI.CT_ITS ---
EXAM: CT BRAIN NECK CTA CLINICAL HISTORY: headache. TECHNIQUE: Imaging Protocol: Axial CT angiography was performed with multi-slice acquisition and mu lti-planar and/or 3D reconstructions. CONTRAST MATERIAL: Intravenous: Omnipaque 350 Contrast volume:85 mL COMPARISON: CT CT HEAD WO from 03/20/2020 FINDINGS: CTA Brain W: Internal Carotid Arteries: Petrous: There is marked attenuation of the right internal carotid artery from its petrous portion to the supraclinoid portion. The left internal carotid artery is unremarkable. Cavernous: Please see above. Cerebral: Please see above. Middle Cerebral Arteries: Right: There is marked attenuation of the right middle cerebral artery branches. Multiple surgical clips are seen in the right middle cranial fossa obscuring portions of the middle cerebral artery. Left: No aneurysm, occlusion or significant stenosis. Anterior Cerebral Arteries: Right: There is marked attenuation of the right anterior cerebral artery. Left: No aneurysm, occlusion or significant stenosis. Posterior cerebral Arteries: Right: No aneurysm, occlusion or significant stenosis. Left: No aneurysm, occlusion or significant stenosis. Vertebral Arteries: Right: No aneurysm, occlusion or significant stenosis. Left: No aneurysm, occlusion or significant stenosis. Basilar Artery: No aneurysm, occlusion or significant stenosis. CTA Neck W: Common Carotid: Right: No aneurysm, occlusion or significant stenosis. Left: No aneurysm, occlusion or significant stenosis. External Carotid: Right: No aneurysm, occlusion or significant stenosis. Left: No aneurysm, occlusion or significant stenosis. Internal Carotid: Right: There is occlusion of the right internal carotid artery at its origin. Left: No aneurysm, occlusion or significant stenosis. Vertebral Artery: Right: No aneurysm, occlusion or significant stenosis. Left: No aneurysm, occlusion or significant stenosis. [address] head: No enhancing lesions are seen. Lung Apices: Normal. Bones: Degenerative changes are seen in the spine. Soft Tissues: Normal. IMPRESSION: 1. Occlusion of the right internal carotid artery at its are origin. Marked attenuation of the right anterior and middle cerebral arteries and distal right internal carotid artery. 2. No enhancing intracranial lesions seen on the [address] brain. 3. Findings were discussed with the emergency department on the date of the examination. RADIATION DOSE DELIVERED: 1,238.3mGy.cm Total DLP DATA REPOSITORY: All CT scans at this facility are submitted to the National Radiology Data Registry (NRDR) Dose Index Registry (DIR) with the [employer] (ACR). RADIATION OPTIMIZATION: All CT scans at this facility use at least one of these dose optimization te chniques: automated exposure control; mA and/or kV adjustment per patient size (includes targeted exa ms where dose is matched to clinical indication); or iterative reconstruction.
[2020-08-07] MEDS: Omnipaque 350 MG/ML 100 ML BTL IJ (11:54)
[2020-08-07] MEDS: Normal Saline - Diluent 50 ML VIAL IV (11:55)
--- NOTE | 2020-08-07 12:08 | DI.RAD_ITS ---
EXAM: XR PORTABLE CHEST AP CLINICAL HISTORY: chest pain TECHNIQUE: 2D digital imaging was performed. COMPARISON: No exams were available for comparison FINDINGS: MEDIASTINUM: Normal. HEART: Normal. PULMONARY VASCULATURE: Normal. LUNGS: Left basilar infiltrate is suspected. PLEURAL SPACE: No pleural effusion or pneumothorax. BONE:Within normal limits for the patient's age. OTHER FINDINGS:Poor inspiration. Portions of the left lung base are obscured by overlying monitoring equipment. IMPRESSION: Question of a left basilar infiltrate. DATA REPOSITORY: RADIATION DOSE DELIVERED:
[2020-08-07 12:17] LABS: Lactate 0.7 mmol/L (0.6-1.4)
[2020-08-07 12:47] LABS: Bilirubin Negative (Negative); Blood Moderate (Negative); Clarity Cloudy (Clear); Glucose Negative (Negative); Ketones Negative (Negative); Leukocyte Esterase Trace (Negative); Nitrite Negative (Negative); Specific Gravity <= 1.005 (1.005-1.025); Urobilinogen 0.2 EU/dL (Up TO 0.2)
[2020-08-07 12:56] LABS: Bacteria Few HPF (Negative); C & S Indicated? Yes; Casts Negative LPF (Negative); Crystals Negative HPF (Negative); Epithelial Cells Rare HPF (Negative); Mucus Negative (Negative)
[2020-08-07 12:57] LABS: WBC >50 HPF (0-5)
[2020-08-07 14:03] LABS: Troponin I < 0.05 ng/mL (<0.06)
--- NOTE | 2020-08-07 16:42 | W.PM.HP.N ---
Date of service: 08/07/20 Time of Service: 16:42 Assessment and Plan Assessment and plan (1) Chest pain: Status: Acute Assessment and plan: resolved. with episode of bradycardia in ED resolved spontaneously and asymptomatic. cycle troponins, refer to obs on telemetry if patient agreeable. (2) UTI (urinary tract infection): Status: Acute Assessment and plan: ceftriaxone day 1 while awaiting culture report. if patient agreeable to IV. she is currently refusing (3) CVA (cerebral vascular accident): Status: Chronic Assessment and plan: chronic and stable. (4) Discharge planning issues: Status: Acute Assessment and plan: anticipate discharge back to the [facility] tomorrow if remains medically stable. discussed with DR Richmond who is in agreement. History of Present Illness History of Present Illness Chief Complaint: chest pain Narrative: information obtained from ED provider and record. patient from [facility] presents to ED via EMS, called for reports of chest pain and headache. resolved by time arrives at ED, work up unrevealing. she did have a brief episode of bradycardia which resolved spontaneously with no symptoms or drop in BP. she received morphine for pain. she appears at her baseline but obs request d/t c/o of chest pain with bradycardia. repeat troponin negative, no acute st segment changes urine shows possible UTI. will place on telemetry and ceftriaxone. referred to obs under hospitalist. Review of Systems All systems reviewed & are unremarkable except as noted in HPI and below and Unobtainable due to mental status [facility] Medical History (Updated 08/07/20 @ 16:49 by Mely Lopez NP) Cerebral aneurysm CVA (cerebral vascular accident) Skull defect Surgical History (Updated 04/20/20 @ 00:02 by LUIS GONZALEZ) History of cranial surgery S/P coil embolization of cerebral aneurysm Social History Smoking/Tobacco Use Status: Former Tobacco Use Smoking risk assessment performed?: Yes Drug use: Never Additional Social history: pt lives at the [facility] Home Medications and Allergies Home Medications Medication Instructions Recorded Confirmed Type acetaminophen 650 mg PO Q6H PRN 03/20/20 08/07/20 History nystatin 1 applic TOPICAL BID PRN 03/20/20 08/07/20 History ondansetron 4 mg TRANSLINGUAL Q8H PRN 03/20/20 08/07/20 History Allergies Allergy/AdvReac Type Severity Reaction Status Date / Time aspirin Allergy Unknown Unverified 03/14/19 15:36 Penicillins Allergy Unknown Unverified 03/14/19 15:36 Sulfa (Sulfonamide Allergy Unknown Unverified 03/14/19 15:36 Antibiotics) Exam Narrative Exam Narrative: Constitutional: Chronically ill but acutely [id number] HENT: head atraumatic/normocephalic, mucous membranes moist Eyes: conjunctiva normal, sclera normal, pupils 3mm b/l Neck: no stridor, normal ROM, trachea midline Chest: normal inspection Resp: normal work of breathing, LCTAB Cardio: normal rate, normal rhythm, no murmur appreciated GI: abdomen soft, non-tender, non-distended Back: normal inspection, no rash Skin: warm, dry, normal color, no rash Neuro: alert, left hemiparesis, moves right leg but does not lift up against gravity, normal motor exam right arm, at her baseline per nurse at the [facility] Results Labs Result diagrams: 08/07/20 10:09 08/07/20 10:09 Labs: Laboratory Results - last 24 hr 08/07/20 08/07/20 08/07/20 10:09 10:09 12:10 WBC 8.83 RBC 4.68 Hgb 12.9 Hct 41.0 MCV 87.6 MCH 27.6 MCHC 31.5 L RDW 13.1 Plt Count 403 H MPV 9.8 Immature Gran % 0.2 Neutrophils % 65.8 Lymphocytes % 24.6 Monocytes % 6.8 Eosinophils % 1.7 Basophils % 0.9 Nucleated RBC % 0 Absolute Neutrophils 5.81 Absolute Lymphocytes 2.17 Absolute Monocytes 0.60 Absolute Eosinophils 0.15 Absolute Basophils 0.08 VBG Lactate 0.7 Sodium 143 Potassium 3.9 Chloride 107 Carbon Dioxide 28.4 Anion Gap 7.6 BUN 17 Creatinine 0.9 Estimated GFR/1.73 m2 >= 60.00 Glucose 92 Calcium 9.2 Total Bilirubin 0.4 AST 14 L ALT 17 Alkaline Phosphatase 76 Troponin I < 0.05 Total Protein 7.9 Albumin 3.2 L Urine Color Urine Clarity Urine pH Ur Specific [place] Urine Protein Urine Ketones Urine Blood Urine Nitrite Urine Bilirubin Urine Urobilinogen Ur Leukocyte Esterase Urine RBC Urine WBC Ur Epithelial Cells Urine Crystals Urine Bacteria Urine Casts Urine Mucus Ur Culture Indicated? Urine Glucose 08/07/20 08/07/20 12:29 13:32 WBC RBC Hgb Hct MCV MCH MCHC RDW Plt Count MPV Immature Gran % Neutrophils % Lymphocytes % Monocytes % Eosinophils % Basophils % Nucleated RBC % Absolute Neutrophils Absolute Lymphocytes Absolute Monocytes Absolute Eosinophils Absolute Basophils VBG Lactate Sodium Potassium Chloride Carbon Dioxide Anion Gap BUN Creatinine Estimated GFR/1.73 m2 Glucose Calcium Total Bilirubin AST ALT Alkaline Phosphatase Troponin I < 0.05 Total Protein Albumin Urine Color Yellow Urine Clarity Cloudy Urine pH 6.0 Ur Specific [place] <= 1.005 Urine Protein Negative Urine Ketones Negative Urine Blood Moderate H Urine Nitrite Negative Urine Bilirubin Negative Urine Urobilinogen 0.2 Ur Leukocyte Esterase Trace H Urine RBC 3-5 H Urine WBC >50 H Ur Epithelial Cells Rare Urine Crystals Negative Urine Bacteria Few Urine Casts Negative Urine Mucus Negative Ur Culture Indicated? Yes Urine Glucose Negative Last Vital Signs Temp 36.3 C L 08/07/20 16:05 Pulse 65 08/07/20 16:05 Resp 16 08/07/20 16:05 BP 134/54 L 08/07/20 16:05 Pulse Ox 93 08/07/20 16:05 COVID-19 Screening Have you, or household traveled for leisure in last 14 days?: No
--- NOTE | 2020-08-07 18:12 | NUR.NOTE ---
Nursing Note: pt does not have IV access and is refusing to let staff try, therefore pt is not getting IV fluids and IV antibiotics. pt is also refusing vitals signs, except from [facility] that [facility] [place] pt wore the tele for about 5 minutes then ripped all the stickers off. pt did let staff change her wet brief.
[2020-08-07 22:12] LABS: COVID-19 RT-PCR UVMMC Result Negative (Negative)
[2020-08-08 07:05] VITALS: BP 127/66; PULSE 62; RESP 20; TEMP 36.6; O2SAT 97
--- NOTE | 2020-08-08 10:09 | W.PM.DS.N ---
Date of service: 08/08/20 Time of Service: 10:09 DS: Diagnosis Discharge Diagnosis (1) Chest pain: Status: Acute Asessment and Plan: resolved, repeat troponin negative. (2) UTI (urinary tract infection): Status: Acute Asessment and Plan: urine culture pending no fever, asymptomatic outpatient provider to follow (3) CVA (cerebral vascular accident): Status: Chronic Asessment and Plan: stable at baseline Discharge Plan Disposition Patient Disposition: [facility] Condition: Stable Discharge Details Reason For Visit: HEADACHE Admit Date/Time: 08/07/20 12:34 Admit Provider: Giovany Richmond Attending Provider: Giovany Richmond Primary Care Provider: Liz Bertrand Hospital Course Hospital Course: This is a 70 year old female with past medical history of CVA with left sided hemiparesis and aphasia who presented to the ED with c/o chest pain and headache. Her work up included troponin and EKG which were unremarkable, repeat unremarkable, CT head and CTA head and neck, all unrevealing. There was reports of a brief episode of bradycardia where she was asymptomatic. She received morphine with resolution of her symptoms and request was made for an observation admission overnight. 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 vitals stable, she was eating and drinking well. Her urine did reflex for culture and is pending at discharge. outpatient provider should follow and treat as warranted. she is safe to discharge back to the [facility]. discussed with Dr Do Home Meds and New Rx's Prescriptions: Continued acetaminophen 650 mg Tablet 650 mg PO Q6H PRNRF: 0 nystatin 100,000 unit/gram Powder 1 applic TOPICAL BID PRNRF: 0 ondansetron 4 mg Tablet,Disintegrating 4 mg translingual Q8H PRNRF: 0 Discharge Instructions Instructions: Chest Pain (DC) Additional Instructions: continue usual medication and routine return for new or worsening symtpoms. urine culture report not resulted by time of discharge, please report signs of UTI immediately, including fever, pain, frequency, urgency or any concerns. your doctor will follow report and prescribe antibiotic if needed. Referrals: Liz Bertrand [Primary Care Provider] - Activity:: Activity as Tolerated Equipment/Supplies:: No Equipment Needed Diet:: As Tolerated Discharge Orders Discharge Orders: Discharge Order (Routine); Ordered 08/08/20 Ordered By: Mely Lopez DS: Summary Time Spent with Patient providing and/or coordinating discharge services: Less than 30 minutes Status at Discharge Functional status at discharge: wheelchair bound Overall status at discharge: patient is back to baseline Mental Status: other Speech and Movement: other Mood: other Affect: normal affect Exam Const General: cooperative, comfortable and no acute distress Nutritional Appearance: average body habitus Orientation: alert, awake and oriented x3 Limitations: language barrier (limited words) HENMT Head: normal to inspection, normocephalic and atraumatic Mouth: oral mucosae normal Resp Effort & Inspection: normal respiratory effort Cardio Rate: regular rate (well perfused) Rhythm: regular rhythm GI Inspection: normal to inspection Palpation: soft Neuro General: patient alert, patient awake and other (limited speech to a few words. ) Cognition: abnormal cognition (unable to assess) Speech: abnormal speech Motor: tone not normal throughout (left sided hemiparesis) Psych Mental Status: other Speech and Movement: other Mood: other Affect: normal affect DS: Data Vitals/I&O Vitals and I&O: Vital Signs Temperature 36.4 C L 08/07/20 23:15 Temperature Source Tympanic 08/07/20 23:15 Pulse 60 08/07/20 23:15 Pulse Rhythm Regular 08/08/20 01:20 Pulse 61 08/07/20 13:10 Respiratory Rate 18 08/07/20 23:15 Respiratory Effort Non-Labored 08/08/20 01:20 Respiratory Depth Normal 08/08/20 01:20 Respiratory Pattern Normal 08/08/20 01:20 Blood Pressure 158/72 H 08/07/20 23:15 Blood Pressure Mean 70 08/07/20 13:01 Pulse Oximetry 94 08/07/20 23:15 Oxygen Delivery Method Room Air 08/07/20 16:05 Oxygen Flow Rate 0 08/07/20 16:05 Pain Level 0 08/07/20 16:05 Comment 08/07/20 23:08 Intake & Output 08/07/20 08/07/20 08/08/20 11:59 23:59 11:59 Intake Total 50 / 1080 1030 / 1080 Output Total 200 / 200 Balance 50 / 880 830 / 880 Weight 81.8 kg Intake: IV 50 / 50 Oral 1030 / 1030 Output: Emesis 200 / 200 Other: Urine Color Yellow Urine Appearance Clear Emesis Description Projectile Clear/Water Voiding Methods Diaper Incontinent Data Completed and Pending Labs on day of discharge: Labs from last 24 hours 08/08/20 08/08/20 08/07/20 05:35 05:35 13:32 WBC Pending RBC Pending Hgb Pending Hct Pending MCV Pending MCH Pending MCHC Pending RDW Pending Plt Count Pending MPV Pending Immature Gran % Pending Neutrophils % Pending Lymphocytes % Pending Monocytes % Pending Eosinophils % Pending Basophils % Pending Nucleated RBC % Absolute Neutrophils Pending Absolute Lymphocytes Pending Absolute Monocytes Pending Absolute Eosinophils Pending Absolute Basophils Pending VBG Lactate Sodium Pending Potassium Pending Chloride Pending Carbon Dioxide Pending Anion Gap Pending BUN Pending Creatinine Pending Estimated GFR/1.73 m2 Pending Glucose Pending Calcium Pending Total Bilirubin AST ALT Alkaline Phosphatase Troponin I Pending < 0.05 Total Protein Albumin Urine Color Urine Clarity Urine pH Ur Specific [place] Urine Protein Urine Ketones Urine Blood Urine Nitrite Urine Bilirubin Urine Urobilinogen Ur Leukocyte Esterase Urine RBC Urine WBC Ur Epithelial Cells Urine Crystals Urine Bacteria Urine Casts Urine Mucus Ur Culture Indicated? Urine Glucose SARS-CoV-2 (PCR) Nasopharyn COVID-19 PCR Ref Test Perform Site 08/07/20 08/07/20 08/07/20 12:50 12:29 12:10 WBC RBC Hgb Hct MCV MCH MCHC RDW Plt Count MPV Immature Gran % Neutrophils % Lymphocytes % Monocytes % Eosinophils % Basophils % Nucleated RBC % Absolute Neutrophils Absolute Lymphocytes Absolute Monocytes Absolute Eosinophils Absolute Basophils VBG Lactate 0.7 Sodium Potassium Chloride Carbon Dioxide Anion Gap BUN Creatinine Estimated GFR/1.73 m2 Glucose Calcium Total Bilirubin AST ALT Alkaline Phosphatase Troponin I Total Protein Albumin Urine Color Yellow Urine Clarity Cloudy Urine pH 6.0 Ur Specific [place] <= 1.005 Urine Protein Negative Urine Ketones Negative Urine Blood Moderate H Urine Nitrite Negative Urine Bilirubin Negative Urine Urobilinogen 0.2 Ur Leukocyte Esterase Trace H Urine RBC 3-5 H Urine WBC >50 H Ur Epithelial Cells Rare Urine Crystals Negative Urine Bacteria Few Urine Casts Negative Urine Mucus Negative Ur Culture Indicated? Yes Urine Glucose Negative SARS-CoV-2 (PCR) Negative Nasopharyn COVID-19 PCR Not Applicable Ref Test [facility]form [facility] 08/07/[facility] 08/07/20 10:09 10:09 WBC 8.83 RBC 4.68 Hgb 12.9 Hct 41.0 MCV 87.6 MCH 27.6 MCHC 31.5 L RDW 13.1 Plt Count 403 H MPV 9.8 Immature Gran % 0.2 Neutrophils % 65.8 Lymphocytes % 24.6 Monocytes % 6.8 Eosinophils % 1.7 Basophils % 0.9 Nucleated RBC % 0 Absolute Neutrophils 5.81 Absolute Lymphocytes 2.17 Absolute Monocytes 0.60 Absolute Eosinophils 0.15 Absolute Basophils 0.08 VBG Lactate Sodium 143 Potassium 3.9 Chloride 107 Carbon Dioxide 28.4 Anion Gap 7.6 BUN 17 Creatinine 0.9 Estimated GFR/1.73 m2 >= 60.00 Glucose 92 Calcium 9.2 Total Bilirubin 0.4 AST 14 L ALT 17 Alkaline Phosphatase 76 Troponin I < 0.05 Total Protein 7.9 Albumin 3.2 L Urine Color Urine Clarity Urine pH Ur Specific [place] Urine Protein Urine Ketones Urine Blood Urine Nitrite Urine Bilirubin Urine Urobilinogen Ur Leukocyte Esterase Urine RBC Urine WBC Ur Epithelial Cells Urine Crystals Urine Bacteria Urine Casts Urine Mucus Ur Culture Indicated? Urine Glucose SARS-CoV-2 (PCR) Nasopharyn COVID-19 PCR Ref Test Perform Site 08/07/20 12:29 Urine - Reflex from Urine Culture - Pending 08/07/20 12:50 Nose MRSA Screen - Pending Preliminary micro results at discharge 08/07/20 12:29 Urine Culture - Pending Urine - Reflex from 08/07/20 12:50 MRSA Screen - Pending Nose [facility] Medical History (Updated 08/07/20 @ 16:49 by Mely Lopez NP) Cerebral aneurysm CVA (cerebral vascular accident) Skull defect Surgical History (Updated 04/20/20 @ 00:02 by LUIS GONZALEZ) History of cranial surgery S/P coil embolization of cerebral aneurysm Social History Smoking/Tobacco Use Status: Former Tobacco Use Smoking risk assessment performed?: Yes Drug use: Never Additional Social history: pt lives at the [facility]
--- NOTE | 2020-08-08 16:21 | CMDISCH_ITS ---
- If Service Date Differs Date of service: 08/08/20 Time of Service: 16:21 LACE Index Scoring Tool - Questions: Length of Stay (in days): 1 Acuity (Admit via E.D.?): Yes Comorbidities: Cerebrovascular Disease E.D. Visits: 2 - Answers: Total Score: 7 Risk of Readmission: Low Risk Care Management Discharge Reason for Hospitalization: chest pain Discharge Plan: Belinda is being discharged home back to the [facility] where she resides. She will follow up with the providers at the facility and follow their plan of care. Transportation will be by ambulance with [facility] coordinated by CM. Patient/Family Education Needs: Discharge plan, limitations, Ask Me Three.
== END 2020-08-08 11:06 | disposition intermediate care facility (04) ==
LOC: ER 11:34 → MS 13:57
PROVIDERS: Admitting Provider Family Medicine; Emergency Provider Student in an Organized Health Care Education/Training Program; PCP Family Medicine; Visit Provider Family Medicine
DX: R07.89 Other chest pain (principal); Z86.73 Personal history of transient ischemic attack (TIA), and cerebral infarction without residual deficits; Z87.891 Personal history of nicotine dependence; R00.1 Bradycardia, unspecified; R51.9 Headache, unspecified; Z11.52 Encounter for screening for COVID-19
CPT/HCPCS: 36415; 70496; 70498; 80048; 80053; 87077; 87081; 93005; 96374; 96375; 96376; 99217; 99219; 99285; U0003; U0005; 70450; 71045; 81003; 81015; 83605; 84484; 85025; 87086; 87186; 93010; G0378; J2405; J3490

== ENCOUNTER 2021-12-19 10:55 | Emergency (ER) | payer MEDICARE, MEDICAID, SELFPAY ==
[2021-12-19 10:56] VITALS: BP 154/49; PULSE 87; RESP 16; O2SAT 96
[2021-12-19 12:15] LABS: Lactate 0.7 mmol/L (0.6-1.4)
[2021-12-19 12:20] LABS: Abs Immature Grans 0.04 10^3/uL (0.0-0.06); Absolute Basophil Count 0.07 10^3/uL (0.0-0.2); Absolute Eosinophil Count 0.11 10^3/uL (0.0-0.7); Absolute Lymphocyte Count 2.09 10^3/uL (1.2-3.4); Absolute Monocyte Count 0.94 10^3/uL (0.1-0.8); Absolute Neutrophil Count 8.19 10^3/uL (1.2-6.7); Basophils % 0.6; HCT 38.1 % (36.0-46.0); HGB 12.1 g/dL (11.2-15.7); Immature Grans % 0.3; Lymphocytes % 18.3; MCH 27.9 pg (27.0-33.0); MCHC 31.8 % (32.0-36.0); MCV 88 fL (80-95); MPV 9.4 fL (8.0-11.0); Monocytes % 8.2; Neutrophils % 71.6; Platelet Count 440 10^3/uL (130-400); RBC 4.34 10^6/uL (3.93-5.22); RDW-SD 38.9 fL; WBC 11.44 10^3/uL (4.4-10.8)
[2021-12-19] MEDS: cefTRIAXone 2 GM/50 ML BAG IVPB (12:25)
[2021-12-19] MEDS: Nystatin POWDER 60 GM JAR TP (12:27)
[2021-12-19] MEDS: oxyCODONE 5 MG TAB PO (12:28)
[2021-12-19 12:31] LABS: ALT 10 U/L (14-59); AST 11 U/L (15-37); Alkaline Phosphatase 73 U/L (46-116); Anion Gap 9.1 mmol/L (3-11); BUN 19 mg/dL (7-18); Bilirubin, Total 0.3 mg/dL (0.2-1.0); C-Reactive Protein 10.09 mg/dL (0.0-0.3); CO2 25.9 mmol/L (21.0-32.0); CREATININE 0.9 mg/dL (0.55-1.02); Calcium 9.3 mg/dL (8.5-10.1); Chloride 107 mmol/L (98-107); Glucose 105 mg/dL (74-106); Potassium 4.2 mmol/L (3.5-5.1); Sodium 142 mmol/L (136-145); Total Protein 8.1 g/dL (6.4-8.2)
--- NOTE | 2021-12-19 13:09 | ED.GENADUL_ITS ---
Discharge Plan Disposition Patient Disposition: HOME Condition: Stable Discharge Details Clinical Impression: Tinea corporis, Cellulitis Primary Care Provider: Liz Bertrand ED Provider: Salima Matthews Home Meds and New Rx's Prescriptions: New nystatin [Nyamyc] 100,000 unit/gram powder 1 applic topical TID Qty: 60 2RF cephalexin 500 mg capsule 500 mg PO QID Qty: 40 0RF Continued acetaminophen 650 mg Tablet 650 mg PO Q6H PRN nystatin 100,000 unit/gram Powder 1 applic TOPICAL BID PRN ondansetron 4 mg Tablet,Disintegrating 4 mg translingual Q8H PRN Discharge Instructions Instructions: Cellulitis (ED), Skin Yeast Infection (ED) Additional Instructions: Please change dressing 3 times daily with 2 ABD pads Hold of breath And sprinkle the nystatin and then place ABD pad Try to wash with warm soapy water once a day if able Take Keflex 4 times a day Yogurt daily or acidophilus pills while on antibiotic Recheck in 48 hours with provider Return with fever or with any new or worsening complaints Referrals: Liz Bertrand [Primary Care Provider] - Discharge Data Discharge Date/Time-TO BE ENTERED AT DEPARTURE: 12/19/21 13:55 Medical Decision Making Patient is nontoxic in appearance, CBC is 11,000, no significant leukocytosis, I suspect this is a tinea corpus Nystatin was applied Keflex was initiated with 2 g of ceftriaxone given in the emergency department She will need to have dressing changes twice daily CRP is pending, this will need to be followed, I called over to the [facility] and spoke with Daisy the nurse practitioner who is managing the care of this patient and she will follow patient when she returns Think she stable for discharge home to rehabilitation center, they have adequate resources to manage this and they are given low threshold to return should she have new or worsening complaints There is no indication for IV antibiotics or IV fungals at this time I suspect partially this is related to 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 Lab Data Lab results reviewed: Yes I reviewed the patient's lab results. HPI General Date/Time Provider Initiated Documentation: 12/19/21 11:13 . HPI Narrative: 71-year-old female with history of CVA and left-sided hemiparesis with ex pressive aphasia, presents for report of left breast redness and pain. States it started approximately 5 to 7 days ago. Denies history of similar symptoms in the past. Has not been on recent antibiotics. Describes the pain as a burning sensation. Denies fever or chills. Denies history of diabetes. States that there is an malodorous drainage reportedly. Patient resides at the [facility]. Related Data Home Medications Medication Instructions Recorded Confirmed acetaminophen 650 mg tablet 650 mg PO Q6H PRN 03/20/20 12/19/21 nystatin 100,000 unit/gram topical 1 applic topical BID PRN 03/20/20 12/19/21 powder ondansetron 4 mg disintegrating 4 mg translingual Q8H PRN 03/20/20 12/19/21 tablet cephalexin 500 mg capsule 500 mg PO QID #40 caps 12/19/21 nystatin 100,000 unit/gram topical 1 applic topical TID #60 grams 12/19/21 powder ([facility]) Previous Rx's Medication Instructions Recorded cephalexin 500 mg capsule 500 mg PO QID #40 caps 12/19/21 nystatin 100,000 unit/gram topical 1 applic topical TID #60 grams 12/19/21 powder ([facility]) Allergies Allergy/AdvReac Type Severity Reaction Status Date / Time aspirin Allergy Unknown Unverified 12/19/21 11:07 Penicillins Allergy Unknown Unverified 12/19/21 11:07 Sulfa (Sulfonamide Allergy Unknown Unverified 12/19/21 11:07 Antibiotics) General Stated Complaint: Cellulitis LARA: 3 Review of Systems All systems reviewed & are unremarkable except as noted in HPI and below PFSH All Active Problems (Updated 12/19/21 @ 13:13 by LA Monique) Tinea corporis (Acute) Cellulitis (Acute) Discharge planning issues (Acute) UTI (urinary tract infection) (Acute) CVA (cerebral vascular accident) (Chronic) Chest pain (Acute) Right shoulder pain (Acute) Neck pain (Acute) Weakness (Acute) Medical History (Updated 12/19/21 @ 13:13 by LA Monique) Aphasia following cerebral infarction Cerebral aneurysm 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 Erythema noted, excoriation inferior to left breast, no crepitus, worse to palpation, no drainage from nipple, no significant induration Resp Effort & Inspection: normal respiratory effort Auscultation: clear to auscultation bilaterally Cardio Rate: regular rate Rhythm: regular rhythm Skin Other: Tinea corporis appearing rash with erythema, serosanguineous malodorous drainage No crepitus Neuro General: patient alert Cognition: normal cognition Other: Expressive aphasia Course Vital Signs Vital signs: Vital Signs Pulse 87 12/19/21 10:56 Respiratory Rate 16 12/19/21 10:56 Blood Pressure 154/49 H 12/19/21 10:56 Pulse Oximetry 96 12/19/21 10:56 Pulse 87 12/19/21 10:56 Respiratory Rate 16 12/19/21 10:56 Blood Pressure 154/49 H 12/19/21 10:56 Blood Pressure Position Supine 12/19/21 10:56 Pulse Oximetry 96 12/19/21 10:56 Oxygen Delivery Method Room Air 12/19/21 10:56 Oxygen Flow Rate 0 12/19/21 10:56 Pain Level 8 12/19/21 12:28 Lab/Test Results Lab/Test Results: 12/19/21 12:09 Blood Blood Culture - Pending 12/19/21 12:01 Blood Blood Culture - Pending Laboratory Tests Range/Units 12/19/21 12/19/21 12/19/21 12:01 12:01 12:09 WBC (4.4-10.8) 10^3/uL 11.44 H RBC (3.93-5.22) 10^6/uL 4.34 Hgb (11.2-15.7) g/dL 12.1 Hct (36.0-46.0) % 38.1 MCV (80-95) fL 88 MCH (27.0-33.0) pg 27.9 MCHC (32.0-36.0) % 31.8 L RDW (11.7-14.6) % 12.0 Plt Count (130-400) 10^3/uL 440 H MPV (8.0-11.0) fL 9.4 Immature Gran % 0.3 Neutrophils % 71.6 Lymphocytes % 18.3 Monocytes % 8.2 Eosinophils % 1.0 Basophils % 0.6 Nucleated RBC % (0.0-0.3) % 0.0 Absolute Neutrophils (1.2-6.7) 10^3/uL 8.19 H Absolute Lymphocytes (1.2-3.4) 10^3/uL 2.09 Absolute Monocytes (0.1-0.8) 10^3/uL 0.94 H Absolute Eosinophils (0.0-0.7) 10^3/uL 0.11 Absolute Basophils (0.0-0.2) 10^3/uL 0.07 VBG Lactate (0.6-1.4) mmol/L 0.7 Sodium (136-145) mmol/L 142 Potassium (3.5-5.1) mmol/L 4.2 Chloride (98-107) mmol/L 107 Carbon Dioxide (21.0-32.0) mmol/L 25.9 Anion Gap (3-11) mmol/L 9.1 BUN (7-18) mg/dL 19 H Creatinine (0.55-1.02) mg/dL 0.9 Estimated GFR/1.73 m2 (mL/min/1.73m2) >= 60.00 Glucose (74-106) mg/dL 105 Calcium (8.5-10.1) mg/dL 9.3 Total Bilirubin (0.2-1.0) mg/dL 0.3 AST (15-37) U/L 11 L ALT (14-59) U/L 10 L Alkaline Phosphatase (46-116) U/L 73 C-Reactive Protein (0.0-0.3) mg/dL 10.09 H Total Protein (6.4-8.2) g/dL 8.1 Albumin (3.4-5.0) g/dL 3.0 L
--- NOTE | 2021-12-19 17:36 | NUR.NOTE ---
Nursing Note: Per Chinyere at the [facility], they agreed to pay for the transfer back to their facility.
== END 2021-12-19 13:55 | disposition home or self-care (01) ==
PROVIDERS: Emergency Provider Physician Assistant; PCP Family Medicine
DX: B35.4 Tinea corporis (principal); N61.0 Mastitis without abscess
CPT/HCPCS: 36415; 80053; 87040; 96365; 99284; 83605; 85025; 86140; 99283